=== PATIENT | male | born 1990 | race Caucasian/White ===

== ENCOUNTER 2016-12-12 12:32 | Emergency (ER) | payer BC ==
[~2016-12-12] VITALS: Ht 172.7 cm; Wt 84.8 kg
[2016-12-12 14:00] VITALS: BP 119/84
== END 2016-12-12 14:01 | disposition home or self-care (01) ==
LOC: EME 12:32
PROC: 0HQ1XZZ Repair Face Skin, External Approach (ICD-10-PCS; principal; 2016-12-12)
DX: S01.81XA Laceration without foreign body of other part of head, initial encounter (principal); S00.83XA Contusion of other part of head, initial encounter; W22.8XXA Striking against or struck by other objects, initial encounter; Y93.89 Activity, other specified; F17.200 Nicotine dependence, unspecified, uncomplicated
CPT/HCPCS: 99281; 99284